=== PATIENT | female | born 1995 | race Caucasian/White ===

== ENCOUNTER → 2023-01-21 | Outpatient (CLI) | payer OTHER | LOC: M WHC 13:29 | PROVIDERS: ATTEND Obstetrics & Gynecology | DX: Z34.92 Encounter for supervision of normal pregnancy, unspecified, second trimester (principal) ==

== ENCOUNTER → 2023-02-28 | Outpatient (CLI) | payer OTHER | LOC: M WHC 12:34 | PROVIDERS: ATTEND Obstetrics & Gynecology | DX: Z34.92 Encounter for supervision of normal pregnancy, unspecified, second trimester (principal) ==

== ENCOUNTER → 2023-02-28 | Outpatient (CLI) | payer OTHER ==
[2023-02-28 16:03] LABS: HEMATOCRIT 36.9 % (36.0-47.0); HEMOGLOBIN 12.2 g/dl (12.0-15.5); MEAN CORPUSCULAR HGB CONC 33.1 g/dl (32.0-36.5); MEAN CORPUSCULAR VOLUME 93.9 fl (80.0-96.0); PLATELET COUNT, AUTOMATED 115 10^3/uL (150-450); RED BLOOD COUNT 3.93 10^6/uL (4.00-5.40); WHITE BLOOD COUNT 9.6 10^3/uL (4.0-10.0)
== END ==
LOC: M PLALAB 12:37
PROVIDERS: ATTEND Obstetrics & Gynecology
DX: Z34.92 Encounter for supervision of normal pregnancy, unspecified, second trimester (principal); Z3A.00 Weeks of gestation of pregnancy not specified

== ENCOUNTER → 2023-04-05 | Outpatient (CLI) | payer OTHER ==
[2023-04-05 13:34] LABS: HEMATOCRIT 37.5 % (36.0-47.0); HEMOGLOBIN 12.4 g/dl (12.0-15.5); MEAN CORPUSCULAR HEMOGLOBIN 31.3 pg (27.0-33.0); MEAN CORPUSCULAR HGB CONC 33.1 g/dl (32.0-36.5); MEAN CORPUSCULAR VOLUME 94.7 fl (80.0-96.0); RED BLOOD COUNT 3.96 10^6/uL (4.00-5.40); WHITE BLOOD COUNT 8.6 10^3/uL (4.0-10.0)
[2023-04-05 14:12] LABS: PLATELET COUNT, AUTOMATED 98 10^3/uL (150-450)
== END ==
LOC: M PLALAB 09:04
PROVIDERS: ATTEND Obstetrics & Gynecology
DX: O99.119 Other diseases of the blood and blood-forming organs and certain disorders involving the immune mechanism complicating pregnancy, unspecified trimester (principal); Z3A.00 Weeks of gestation of pregnancy not specified

== ENCOUNTER → 2023-05-09 | Outpatient (CLI) | payer OTHER ==
[2023-05-09 14:51] LABS: HEMATOCRIT 36.8 % (36.0-47.0); HEMOGLOBIN 12.5 g/dl (12.0-15.5); MEAN CORPUSCULAR HEMOGLOBIN 31.2 pg (27.0-33.0); MEAN CORPUSCULAR VOLUME 91.8 fl (80.0-96.0); RED BLOOD COUNT 4.01 10^6/uL (4.00-5.40)
[2023-05-09 15:14] LABS: PLATELET COUNT, AUTOMATED 96 10^3/uL (150-450)
== END ==
LOC: M PLALAB 09:43
PROVIDERS: ATTEND Advanced Practice Midwife
DX: Z34.03 Encounter for supervision of normal first pregnancy, third trimester (principal); Z3A.00 Weeks of gestation of pregnancy not specified

== ENCOUNTER → 2023-05-10 | Outpatient (CLI) | payer OTHER ==
[2023-05-10 14:36] LABS: PLATELET COUNT, AUTOMATED 95 10^3/uL (150-450)
== END ==
LOC: M PLALAB 09:29
PROVIDERS: ATTEND Advanced Practice Midwife
DX: Z34.83 Encounter for supervision of other normal pregnancy, third trimester (principal); D69.6 Thrombocytopenia, unspecified; Z3A.00 Weeks of gestation of pregnancy not specified
CPT/HCPCS: 36415; 85027; 85049; 85055; G0463

== ENCOUNTER → 2023-05-10 | Outpatient (REF) | payer OTHER | LOC: M PLALAB 11:20 | PROVIDERS: ATTEND Advanced Practice Midwife | DX: Z34.83 Encounter for supervision of other normal pregnancy, third trimester (principal) ==

== ENCOUNTER → 2023-05-24 | Outpatient (CLI) | payer OTHER ==
[2023-05-24 17:21] LABS: HEMATOCRIT 39.3 % (36.0-47.0); HEMOGLOBIN 13.1 g/dl (12.0-15.5); MEAN CORPUSCULAR HGB CONC 33.3 g/dl (32.0-36.5); MEAN CORPUSCULAR VOLUME 92.9 fl (80.0-96.0); PLATELET COUNT, AUTOMATED 112 10^3/uL (150-450); RED BLOOD COUNT 4.23 10^6/uL (4.00-5.40); WHITE BLOOD COUNT 11.6 10^3/uL (4.0-10.0)
== END ==
LOC: M PLALAB 12:24
PROVIDERS: ATTEND Advanced Practice Midwife
DX: D69.6 Thrombocytopenia, unspecified (principal)

== ENCOUNTER → 2023-05-31 | Outpatient (CLI) | payer OTHER ==
[2023-05-31 14:10] LABS: HEMATOCRIT 38.9 % (36.0-47.0); HEMOGLOBIN 12.7 g/dl (12.0-15.5); MEAN CORPUSCULAR HEMOGLOBIN 30.2 pg (27.0-33.0); MEAN CORPUSCULAR HGB CONC 32.6 g/dl (32.0-36.5); MEAN CORPUSCULAR VOLUME 92.6 fl (80.0-96.0); PLATELET COUNT, AUTOMATED 101 10^3/uL (150-450); WHITE BLOOD COUNT 9.7 10^3/uL (4.0-10.0)
== END ==
LOC: M PLALAB 11:34
PROVIDERS: ATTEND Obstetrics & Gynecology
DX: O99.113 Other diseases of the blood and blood-forming organs and certain disorders involving the immune mechanism complicating pregnancy, third trimester (principal); Z3A.00 Weeks of gestation of pregnancy not specified

== ENCOUNTER → 2023-08-05 | Outpatient (CLI) | payer OTHER ==
[~2023-08-05] MED LIST: COLA100C5 PO; IBUP80TA PO; PERCOCET PO; PRED20TA PO; PRENTAB9 PO
[2023-08-05 14:01] LABS: HEMATOCRIT 39.5 % (36.0-47.0); HEMOGLOBIN 12.9 g/dl (12.0-15.5); MEAN CORPUSCULAR HEMOGLOBIN 29.8 pg (27.0-33.0); MEAN CORPUSCULAR HGB CONC 32.7 g/dl (32.0-36.5); MEAN CORPUSCULAR VOLUME 91.2 fl (80.0-96.0); PLATELET COUNT, AUTOMATED 162 10^3/uL (150-450); RED BLOOD COUNT 4.33 10^6/uL (4.00-5.40); WHITE BLOOD COUNT 5.9 10^3/uL (4.0-10.0)
== END ==
LOC: M PLALAB 11:00
PROVIDERS: ATTEND Obstetrics & Gynecology
DX: O99.119 Other diseases of the blood and blood-forming organs and certain disorders involving the immune mechanism complicating pregnancy, unspecified trimester (principal)

== ENCOUNTER → 2024-03-28 | Outpatient (REF) | payer OTHER ==
[2024-04-02 16:42] LABS: HPV APTIMA Not Detected (Not Detected)
== END ==
LOC: M SFHCWAGY 15:34
PROVIDERS: ATTEND Nurse Practitioner Family
DX: Z12.4 Encounter for screening for malignant neoplasm of cervix (principal)
CPT/HCPCS: 87624; G0123

== ENCOUNTER 2024-11-15 09:30 | Inpatient (IN) | payer OTHER ==
[~2024-11-15] VITALS: Ht 165.1 cm; Wt 96.4 kg
[2024-11-27] VITALS (7 sets, daily range): BP systolic 107–122; BP diastolic 56–64; TEMP 96.9; O2SAT 97–98
[2024-11-27] MEDS: LR 1,000 ML IV SCH ×2 (06:15→08:35)
[2024-11-27] MEDS: LACTATED RINGER'S 1000 ML IV STA (06:29)
[2024-11-27 06:48] LABS: PLATELET COUNT, AUTOMATED 111 10^3/uL (150-450)
[2024-11-27] MEDS: BICITRA 30 ML SOLN UDC PO ONE (07:15)
[2024-11-27] MEDS: ceFAZolin SODIUM 2 GM in DEXTROSE 5% (D5W) ADV/MINI-BAG 50 ML IV ONE (07:15)
[2024-11-27] MEDS ORDERED: OXYTOCIN INJ 10UNITS/ML 1ML VIAL As Ordered ONE (07:20)
[2024-11-27] MEDS ORDERED: ONDANSETRON 4MG 2ML VIAL As Ordered ONE (07:20)
[2024-11-27] MEDS ORDERED: KETOROLAC 30 MG/ML 1 ML VIAL As Ordered ONE (07:20)
[2024-11-27] MEDS ORDERED: dexAMETHasone 4 MG/ML 1 ML VIAL As Ordered ONE (07:20)
[2024-11-27] MEDS ORDERED: MORPHINE PRES-FREE INJ 10 MG/10 ML VIAL As Ordered ONE (07:23)
[2024-11-27 07:57] LABS: HIV 1&2 SCREEN NEGATIVE (NEGATIVE)
[2024-11-27 08:06] LABS: HEPATITIS C VIRUS ABY INDEX 0.10 INDEX (<0.8)
[2024-11-27 08:14] LABS: CORD GAS ABE V -0.5; CORD GAS HCO3 V 23.3 MMOL/L; CORD GAS O2 SAT V 78.2 %; CORD GAS PCO2 V 36.3 mmHg; CORD GAS PH V 7.426 UNITS; CORD GAS PO2 V 31.6 mmHg; CORD GAS SBC V 23.5 MMOL/L; CORD GAS TCO2 V 24.5 MMOL/L
[2024-11-27] MEDS ORDERED: PHENYLephrine 500MCG 5ML (100MCG/ML) SYRINGE As Ordered ONE (08:17)
[2024-11-27] MEDS ORDERED: RHOGAM 300MCG (1500IU) INJ IM SCH (08:35)
[2024-11-27] MEDS ORDERED: SIMETHICONE 80MG CHEW TAB PO PRN (08:35)
[2024-11-27] MEDS: PRENATAL VITAMINS CHEWABLE TABLET PO SCH (09:00)
[2024-11-27] MEDS ORDERED: NALOXONE INJ 0.4 MG/1 ML VIAL IV PRN ×2 (09:10)
[2024-11-27] MEDS: SLF 3 ML SYR IV SCH (09:10)
[2024-11-27] MEDS ORDERED: ONDANSETRON 4MG 2ML VIAL IV PRN (09:10)
[2024-11-27] MEDS ORDERED: **NOTE PATIENT COMMENT** MISC XX SCH (09:10)
[2024-11-27] MEDS ORDERED: diphenhydrAMINE 50 MG/ML VIAL IV PRN (09:10)
[2024-11-27] MEDS ORDERED: CARBOPROST TROMETHAMINE 250 MCG/ML AMP IM PRN (09:35)
[2024-11-27] MEDS ORDERED: TRANEXAMIC ACID INJection 1,000 MG in NS 100 ML IV PRN (09:35)
[2024-11-27] MEDS ORDERED: OXYTOCIN INJ 10UNITS/ML 1ML VIAL IM PRN (09:35)
[2024-11-27] MEDS: METHYLERGONOVINE MALEATE 0.2 MG/ML 1 ML VIAL IM STA (09:37)
[2024-11-27] MEDS: KETOROLAC 30 MG/ML 1 ML VIAL IV SCH (14:04)
[2024-11-27] MEDS ORDERED: IBUP80TA PO (21:17)
[2024-11-27] MEDS ORDERED: OXYC1TAB23 PO (21:17)
[2024-11-27] MEDS ORDERED: COLA100C5 PO (21:18)
[2024-11-28 02:02] VITALS: BP 94/58; O2SAT 96
[2024-11-28 06:00] VITALS: BP 95/60; O2SAT 97
[2024-11-28 07:02] LABS: PLATELET COUNT, AUTOMATED 103 10^3/uL (150-450)
[2024-11-28] MEDS: IBUPROFEN 800 MG TAB PO SCH (09:07)
[2024-11-28 09:55] VITALS: BP 98/59; O2SAT 100
[2024-11-28] MEDS: PERCOCET 5MG/325MG TAB PO PRN ×2 (10:17→19:40)
[2024-11-28 14:25] VITALS: BP 124/67; O2SAT 99
[2024-11-28 18:00] VITALS: BP 116/64; O2SAT 98
[2024-11-28 21:46] VITALS: BP 117/55; O2SAT 100
[2024-11-29 01:56] VITALS: BP 95/62; O2SAT 98
[2024-11-29 06:15] VITALS: BP 101/60; O2SAT 99
[2024-11-29] MEDS: MEASLES,MUMPS,RUBELLA VACCINE INJ (MMR-II) SC.IMMUN ONE (09:00)
[2024-11-29 10:11] VITALS: BP 113/58; O2SAT 97
== END 2024-11-29 14:05 | disposition home or self-care (01) | DRG 773 ==
LOC: M LDI 11-27 05:44 → M OBS 11-27 11:11
PROVIDERS: ADMIT Specialist; ATTEND Specialist
PROC: 10D00Z1 Extraction of Products of Conception, Low, Open Approach (ICD-10-PCS; principal; 2024-11-27 07:30)
DX: O40.3XX0 Polyhydramnios, third trimester, not applicable or unspecified (principal); O34.211 Maternal care for low transverse scar from previous cesarean delivery; Z37.0 Single live birth; Z3A.38 38 weeks gestation of pregnancy

== ENCOUNTER → 2024-12-21 | Outpatient (REF) | payer OTHER ==
[~2024-12-21] MED LIST changes: +OXYC1TAB23 PO
[2024-12-21 13:20] LABS: APPEARANCE, URINE CLEAR (CLEAR); BACTERIA, URINE AUTO NEGATIVE (NEGATIVE); BILIRUBIN, URINE AUTO NEGATIVE (NEGATIVE); BLOOD, URINE BLOOD NEGATIVE (NEGATIVE); GLUCOSE, URINE (UA) AUTO NEGATIVE (NEGATIVE); KETONE, URINE AUTO NEGATIVE (NEGATIVE); LEUKOCYTE ESTERASE, URINE AUTO NEGATIVE (NEGATIVE); MUCUS, URINE SMALL (NEGATIVE); NITRITE, URINE AUTO NEGATIVE (NEGATIVE); PROTEIN, URINE AUTO NEGATIVE (NEGATIVE); RBC, URINE AUTO 1 /HPF (0-3); SPECIFIC GRAVITY URINE AUTO 1.018 (1.002-1.035); SQUAMOUS EPITHELIAL CELL UR AU 0 /HPF (0-6); UROBILINOGEN, URINE AUTO 0.2 mg/dL (0.0-2.0); WBC, URINE AUTO 2 /HPF (0-3)
== END ==
LOC: M SFHCWAGY 12:38
PROVIDERS: ATTEND Specialist
DX: R30.0 Dysuria (principal)

== ENCOUNTER 2025-04-01 10:24 | Outpatient (RCR) | payer OTHER ==
[~2025-04-01 10:24] MED LIST changes: +DEPO150I12 IM; +THERTAB52 PO
== END 2025-04-21 ==
LOC: M PT 10:24
PROVIDERS: ATTEND Specialist
DX: M62.89 Other specified disorders of muscle (principal)